=== PATIENT | male | born 1965 | race Caucasian/White ===

== ENCOUNTER → 2016-09-15 | Outpatient (CLI) | payer BC | END | disposition home or self-care (01) | LOC: C.PATH 17:28 | PROVIDERS: ATTEND Orthopaedic Surgery | DX: D18.01 Hemangioma of skin and subcutaneous tissue (principal) ==

== ENCOUNTER 2024-07-08 09:23 | Inpatient (IN) ==
--- NOTE | 2024-07-08 09:53 | Emergency Department Note ---
Impression & Plan Renal colic, Urolithiasis, Acute flank pain, GÉNESIS (acute kidney injury), Acute UTI ED Provider Note NAME: COLBY BAUM AGE: 59 SEX: M : 1965 ARRIVES VIA: Walk-In INFORMANT: Patient ED PROVIDER(S): Pramod Solorzano DO CHIEF COMPLAINT: Flank pain HPI: Patient is a 59-year-old male who presents ER for right flank pain. He notes this started on Tuesday and was severe. He had some nausea and vomiting. Yesterday he felt a pop when he bent over and since then the chest feels sore. Denies any weakness or numbness in the legs. No dysuria, urgency, or frequency. He noticed some blood in his urine yesterday. No other exacerbating or remitting factors. ADDITIONAL HISTORY OBTAINED: Per HPI Chronic Medical/Social Conditions Affecting Care: Per HPI PAST MEDICAL HISTORY:See Below PAST SURGICAL HISTORY:See Below FAMILY HISTORY:See Below SOCIAL HISTORY:See Below HOME MEDICATIONS:See Below ALLERGIES:See Below VITALS:See Below PHYSICAL EXAMINATION: GENERAL: Sitting up in bed, alert, moderate distress, holding right flank EYE EXAM: normal conjunctiva. OROPHARYNX:mucous membranes are moist NECK: supple, no nuchal rigidity, no adenopathy, non-tender LUNGS: Clear to auscultation. Normal chest wall mechanics HEART: no murmurs, S1 normal and S2 normal ABDOMEN: abdomen soft, non-tender, normo-active bowel sounds, no masses, no rebound or guarding. BACK: Back is symmetrical on inspection and there is no deformity, no midline tenderness, no CVA tenderness. SKIN: no rashes and no bruising UPPER EXTREMITIES: upper extremities are grossly normal. LOWER EXTREMITIES: No pitting edema. NEURO EXAM: Normal sensorium, cranial nerves II-XII grossly intact, normal speech, no gross weakness of arms, no gross weakness of legs. No drift. Finger to nose intact. Gross sensation intact. MEDICAL DECISION MAKING: Patient is a 59-year-old male who presents ER for the below stated complaint. IV was established and blood work was obtained. He was found to be hypertensive. Labs show leukocytosis of 19.5 thousand. No significant anemia. BMP with a creatinine of 1.9 up from baseline of 1. LFTs were unremarkable. T. bili slightly up at 1.6. Lipase normal. UA did show leukocytes and white cells. CT abdomen pelvis showed a stone within the ureter. In the setting of the leuks and white cells I did discuss the case with urology. At this time they question whether there is an infection or this is related to the stone. Patient was covered with IV antibiotics. With the GÉNESIS and the current presentation with the leukocytes, white cells and CBC showing a white count of 19.5 I did discuss case with the hospitalist for further evaluation management treatment. Consults/Care Managements Discussions: Per MDM Triage Nursing notes reviewed. Limited review of prior medical records performed Vital Signs: reviewed and remarkable for HTN and tachy Differential diagnosis: Differential diagnoses includes but is not limited to gastritis, peptic ulcer disease, GERD, gallbladder disease, pancreatitis, small bowel obstruction, appendicitis, diverticulitis, hernia, urinary tract infection, torsion, perforation, trauma, infectious. ER treatment provided: See below Diagnostics interpreted by me include EKG and cardiac monitoring as listed below: -Cardiac Monitoring: An order was placed for continuous cardiac monitoring. The monitor shows a rate of 101 with sinus rhythm. -ECG: none -Laboratory studies:Interpreted by me as stated above in MDM and shown below. Imaging studies: Xrays: As interpreted by me:none CTs show: CT abdomen pelvis per my preliminary interpretation showed no obvious bowel obstruction CT abdomen pelvis per radiology showed hydronephrosis with a stone within the ureter. Procedures:none Critical Care: None Past Med/Surg History Problem List (Updated 07/08/24 @ 15:29 by Pramod Solorzano DO) Acute UTI (Acute) GÉNESIS (acute kidney injury) (Acute) Acute flank pain (Acute) Renal colic (Acute) Urolithiasis (Acute) Encounter for pre-operative examination Medical History (Updated 07/08/24 @ 15:29 by Pramod Solorzano DO) CKD (chronic kidney disease) Acid reflux HTN (hypertension) Borderline diabetes Atrial fibrillation Taking Eliquis - Follows with Dr Horowitz/KIMBERLEE Aceves Sleep apnea CPAP Nephrolithiasis Surgical History Hx of colonoscopy Hx of wisdom tooth extraction History of lithotripsy Hx of umbilical hernia repair Family History Other No family history of adverse response to anesthesia Social History Smoking Status: Former smoker Tobacco Type: Cigarettes Second Hand Exposure: No; Do You Dip or Chew Tobacco: No; Tobacco Cessation Education Requested by Patient: No Hx Alcohol Use: Yes Hx Substance Use: No Preferred Language: Greenlandic Communication Ability: Effective Pump Servicer Required: No Beliefs That Will Affect Care: None Current Living Situation: Spouse Current Living Situation Comment: With spuse Other Information That Helps Us Care for You: No Feels Safe at Home: Yes Safety Concerns: Feels Safe At This Time Assistive Devices: None Allergies Allergies Allergy/AdvReac Type Severity Reaction Status Date / Time No Known Allergies Allergy Verified 07/08/24 11:44 Home Meds Home Medications Medication Instructions Recorded Confirmed apixaban 5 mg tablet (Eliquis) 5 mg PO BID 05/15/24 07/08/24 atorvastatin 10 mg tablet (Lipitor) 10 mg PO HS 05/15/24 07/08/24 cholecalciferol (vitamin D3) 10 10 mcg PO DAILY 05/15/24 07/08/24 mcg (400 unit) capsule diltiazem HCl 180 mg capsule,24 180 mg PO QAM 05/15/24 07/08/24 hr,extended release famotidine 20 mg tablet 20 mg PO QAM 05/15/24 07/08/24 losartan 100 mg tablet 100 mg PO QAM 05/15/24 07/08/24 metformin 500 mg tablet 500 mg PO QAM 05/15/24 07/08/24 multivitamin 1 tab PO DAILY 05/15/24 07/08/24 oxycodone-acetaminophen 5 mg-325 1 tab PO Q8H PRN Pain 05/15/24 07/08/24 mg tablet spironolactone 25 mg tablet 25 mg PO BID 05/15/24 07/08/24 tamsulosin 0.4 mg capsule 0.4 mg PO QAM PRN Bladder Spasms 05/15/24 07/08/24 semaglutide 0.25 mg or 0.5 mg (2 0.25 mg subcut WK 07/05/24 07/08/24 mg/3 mL) subcutaneous pen injector (Ozempic) Results & Data (ED) Vital Signs Vital Signs - 24 hr 07/08/24 09:30 07/08/24 09:39 07/08/24 09:55 Temperature 36.8 C Temperature Source Temporal Artery Scan Pulse Rate 106 H Pulse Rate [Right] 87 Respiratory Rate 18 16 Respiratory Effort / Characteristics Non-Labored Spontaneous Respiratory Depth Normal Blood Pressure 172/84 H Blood Pressure [Right Arm] 156/77 H Blood Pressure Mean 113 Blood Pressure Mean [Right Arm] 103 Blood Pressure Position Sitting Pulse Oximetry 95 94 93 Oxygen Delivery Method Room Air Room Air Sepsis Recent Fever Within 48 Hours No Sepsis New/Unexplained Change in Mental Status No Sepsis Action Taken by Nursing No Action Required 07/08/24 11:23 Temperature Temperature Source Pulse Rate Pulse Rate [Right] 86 Respiratory Rate 18 Respiratory Effort / Characteristics Respiratory Depth Blood Pressure Blood Pressure [Right Arm] 120/63 Blood Pressure Mean Blood Pressure Mean [Right Arm] 82 Blood Pressure Position Pulse Oximetry 93 Oxygen Delivery Method Sepsis Recent Fever Within 48 Hours Sepsis New/Unexplained Change in Mental Status Sepsis Action Taken by Nursing Laboratory Data 07/08/24 09:45 07/08/24 09:45 Lab Results 07/08/24 Range/Units 09:45 WBC 19.52 H (4.8-10.8) K/ul RBC 4.34 L (4.70-6.10) M/uL Hgb 13.3 L (14.0-18.0) g/dl Hct 39.7 L (42.0-52.0) % MCV 91.5 (80.0-100.0) fL MCH 30.6 (25.0-34.0) pg MCHC 33.5 (32.0-36.0) g/dL RDW Std Deviation 43.4 (36.4-46.3) fL RDW Coeff of Tahir 13.0 (11.5-14.5) % Plt Count 204 (130-400) K/uL MPV 10.9 (9.4-12.4) fL Immature Gran % (Auto) 0.7 % Neut % (Auto) 91.3 % Lymph % (Auto) 2.8 % [place] % (Auto) 5.0 % Eos % (Auto) 0.0 % Baso % (Auto) 0.2 % Neut # (Auto) 17.83 H (1.40-6.50) K/uL Lymph # (Auto) 0.55 L (1.20-3.40) K/uL [place] # (Auto) 0.97 H (0.11-0.59) K/uL Eos # (Auto) 0.00 (0.00-0.50) K/uL Baso # (Auto) 0.03 (0.00-0.20) K/uL Immature Gran # (Auto) 0.14 (0.01-0.20) K/uL Sodium 136 (136-145) mmol/L Potassium 4.2 (3.5-5.1) mmol/L Chloride 102 (98-107) mmol/L Carbon Dioxide 23 (21-32) mmol/L Anion Gap 11 (3-11) BUN 26 H (6-23) mg/dl Creatinine 1.92 H (0.6-1.4) mg/dl Est Cr Clr Drug Dosing 63.2 ml/min eGFR 40.13 BUN/Creatinine Ratio 13.5 (10-20) Glucose 183 H (70-99(Fasting)) mg/dl Calcium 10.0 (8.6-10.3) mg/dl Total Bilirubin 1.6 H (0.2-1.0) mg/dl AST 17 (13-39) U/L ALT 24 (7-52) U/L Alkaline Phosphatase 57 (34-104) U/L Total Protein 7.8 (6.0-8.3) gm/dl Albumin 4.3 (3.4-5.0) gm/dl Globulin 3.5 (2.5-4.0) gm/dl Albumin/Globulin Ratio 1.2 (0.9-2) Lipase 9 L (11-82) U/L Urine Color Yellow Urine Appearance Clear (Clear) Urine pH 5.5 (4.5-7.5) Ur Specific [place] 1.024 (1.000-1.030) Urine Protein Trace H (Negative) Urine Glucose (UA) Negative (Negative) Urine Ketones Trace H (Negative) Urine Blood Negative (Negative) Urine Nitrite Negative (Negative) Urine Bilirubin Negative (Negative) Urine Urobilinogen Negative (Negative) Ur Leukocyte Esterase 2+ H (Negative) Urine WBC (Auto) >50 H (0-5) /hpf Urine RBC (Auto) 0-2 (0-2) /hpf U Hyaline Cast (Auto) 0-2 (0-2) /lpf U Epithel Cells (Auto) 0-2 (0-2) /hpf Urine Bacteria (Auto) None Seen (None Seen) Administered Medications Famotidine (Famotidine 20 Mg Tab) 20 mg PO QAM [facility] Stop: 08/07/24 12:25 Last Admin: 07/08/24 14:48 Dose: Not Given Documented By: CRYSTAL Sodium Chloride (Nss) 1,000 mls @ 100 mls/hr IV .Q10H [facility] Stop: 07/09/24 07:29 Last Admin: 07/08/24 11:46 Dose: 100 mls/hr Documented By: REG Insulin Aspart (Insulin Aspart Per Unit Charge) 0 units SC ACHS [facility] Stop: 08/07/24 12:25 Last Admin: 07/08/24 14:48 Dose: Not Given Documented By: CRYSTAL Co-signed By: LOAN Discontinued Medications Apixaban (Apixaban 5 Mg Tablet) 5 mg PO ONE ONE Stop: 07/08/24 11:31 Last Admin: 07/08/24 11:47 Dose: 5 mg Documented By: REG Sodium Chloride (Nss) 1,000 mls @ 999 mls/hr IV .Q1H1M ONE Stop: 07/08/24 10:50 Last Infusion: 07/08/24 11:20 Dose: Infused Documented By: Admin: 07/08/24 10:05 Dose: 999 mls/hr Documented By: REG Ceftriaxone Sodium (Rocephin) 2,000 mg in 50 mls @ 100 mls/hr IV NOW STA Stop: 07/08/24 11:23 Last Infusion: 07/08/24 11:56 Dose: Infused Documented By: Admin: 07/08/24 11:18 Dose: 100 mls/hr Documented By: REG Daptomycin 425 mg/ Syringe 8.5 mls @ 4.25 mls/min IV NOW STA; Protocol Stop: 07/08/24 11:20 Last Admin: 07/08/24 11:47 Dose: 4.25 mls/min Documented By: REG Ketorolac Tromethamine (Ketorolac Tromethamine 15 Mg/Ml Vial) 10 mg IV NOW ONE Stop: 07/08/24 09:51 Last Admin: 07/08/24 10:06 Dose: 10 mg Documented By: REG Tamsulosin HCl (Tamsulosin Hcl 0.4 Mg Cap) 0.4 mg PO NOW ONE Stop: 07/08/24 11:31 Last Admin: 07/08/24 11:47 Dose: 0.4 mg Documented By: REG Imaging Data Radiologist's Impression: Abdomen/Pelvis CT 07/08/24 09:50 EXAM: CT Abdomen and Pelvis Without Intravenous Contrast INDICATION: Right flank pain. TECHNIQUE: Axial computed tomography images of the abdomen and pelvis without intravenous contrast. Sagittal and coronal reformatted images were created and reviewed. This CT exam was performed using one or more of the following dose reduction techniques: automated exposure control, adjustment of the mA and/or kV according to patient size, and/or use of iterative reconstruction technique. COMPARISON: 05/08/2024 FINDINGS: Limitations: None. Lung bases: No abnormality noted. Pleural space: No visualized pleural effusion or pneumothorax. Heart: No abnormality noted. Mediastinum: No abnormality noted. ABDOMEN: Liver: Normal size and contour. Hypodense typical of steatosis. No mass or ductal dilation. Gallbladder and bile ducts: No calcified stones or surrounding fluid. Pancreas: No pancreatic mass, calcification, inflammation or ductal dilation noted. Spleen: No significant abnormality noted. Adrenals: No significant abnormality noted. Kidneys and ureters: There is mild right hydroureteronephrosis to a 4 x 6 mm ureteral stone at the level of L4-L5. Slight increase size of the stone in the right renal pelvis. The renal pelvis is mildly inflamed. There are is a stable 7 mm stone in the right kidney now in the posterior lower pole. There is an 8 mm stone in the left kidney. This could reflect the previously noted UPJ stone which was pushed back into the kidney or it is a new stone with interval passage of the prior stone. There is mild right perinephric acute edema. There is decreased left perinephric edema. Stomach and bowel: Moderate amounts of stool throughout the colon with diffuse diverticulosis. No diverticulitis. No obstruction, thickening or pneumatosis. PELVIS: Appendix: Well seen and appears normal. Bladder: Urinary bladder is only minimally distended and grossly unremarkable. Mild thickening would be difficult to exclude. Reproductive: No abnormalities noted. ABDOMEN and PELVIS: Intraperitoneal space: No free air. No significant fluid collection. Bones/joints: Degenerative changes noted throughout the spine. No acute osseous abnormality seen. Soft tissues: There are small bilateral fat containing inguinal hernias. Vasculature: No abdominal aortic aneurysm. Lymph nodes: No pathologically enlarged lymph nodes. IMPRESSION: 1. Mild right hydroureteronephrosis to a 4 x 6 mm ureteral stone at the level of L4-L5. 2. The stone previously noted at the left UPJ is no longer in this location. There is a similar sized stone in the left kidney which could reflect interval migration or manipulation of the stone back into the kidney or could reflect a new stone. 3. Slight increase size of stone in the right renal pelvis which is inflamed. Nonobstructing right kidney stone stable. 4. Diffuse colonic diverticulosis. No diverticulitis noted. 5. Hepatic steatosis. ACT 112: Negative or not required by law. Electronically signed by Bhumika Ramirez 07-08-2024 10:40 AM Discharge Plan Visit Data Chief Complaint: Kidney Stone Stated Complaint: KIDNEY STONE MOVED/PAINFUL ED Provider: Pramod Solorzano Discharge Problem: Renal colic, Urolithiasis, Acute flank pain, GÉNESIS (acute kidney injury), Acute UTI Patient Disposition: Admitted As Inpatient Discharge Instructions Interventions: ED Discharge Assessment Last Done: 07/08/24 12:25 Discharge Problem: Urolithiasis Qualifiers: Urinary calculus location: ureter Qualified Code(s): N20.1 - Calculus of ureter
[2024-07-08] MEDS: SODIUM CHLORIDE 0.9% 1,000 ML IV ONE (10:05)
[2024-07-08] MEDS: KETOROLAC TROMETHAMINE 15 MG/ML VIAL IV ONE (10:06)
[2024-07-08 10:12] LABS: Hematocrit (blood only) 39.7 % (42.0-52.0); Hemoglobin 13.3 g/dl (14.0-18.0); Mean Corpuscular Hemoglobin 30.6 pg (25.0-34.0); Mean Corpuscular Hgb Conc 33.5 g/dL (32.0-36.0); Mean Corpuscular Volume 91.5 fL (80.0-100.0); Mean Platelet Volume 10.9 fL (9.4-12.4); Platelet Count 204 K/uL (130-400); RDW Standard Deviation 43.4 fL (36.4-46.3); Red Blood Count 4.34 M/uL (4.70-6.10); White Blood Count 19.52 K/ul (4.8-10.8)
[2024-07-08 10:13] LABS: Appearance Urine Clear (Clear); Bacteria Urine Automated None Seen (None Seen); Bilirubin Urine Negative (Negative); Blood Urine Negative (Negative); Cast Urine Automated 0-2 /lpf (0-2); Color Urine Yellow; Epithelial Cell Urine Auto 0-2 /hpf (0-2); Glucose Urine UA Negative (Negative); Ketones Urine Trace (Negative); Leukocyte Esterase Urine 2+ (Negative); Nitrite Urine Negative (Negative); Protein Urine Trace (Negative); RBC Urine Automated 0-2 /hpf (0-2); Specific Gravity Urine 1.024 (1.000-1.030); Urobilinogen Urine Negative (Negative); WBC Urine Automated >50 /hpf (0-5); pH Urine 5.5 (4.5-7.5)
[2024-07-08 10:30] LABS: Albumin Globulin Ratio 1.2 (0.9-2); Albumin Level 4.3 gm/dl (3.4-5.0); BUN Creatinine Ratio 13.5 (10-20); Basophils # (auto) 0.03 K/uL (0.00-0.20); Basophils % (auto) 0.2 %; Bilirubin,Total 1.6 mg/dl (0.2-1.0); Creatinine Clr Calc Pharmacy 63.2 ml/min; Globulin 3.5 gm/dl (2.5-4.0); Immature Granulocytes # (auto) 0.14 K/uL (0.01-0.20); Immature Granulocytes % (auto) 0.7 %; Lymphocytes # (auto) 0.55 K/uL (1.20-3.40); Lymphocytes % (auto) 2.8 %; Monocytes # (auto) 0.97 K/uL (0.11-0.59); Neutrophils # (auto) 17.83 K/uL (1.40-6.50); Neutrophils % (auto) 91.3 %; Potassium 4.2 mmol/L (3.5-5.1); Total Protein 7.8 gm/dl (6.0-8.3)
--- NOTE | 2024-07-08 10:41 | CT Scan Report ---
EXAM: CT Abdomen and Pelvis Without Intravenous Contrast INDICATION: Right flank pain. TECHNIQUE: Axial computed tomography images of the abdomen and pelvis without intravenous contrast. Sagittal and coronal reformatted images were created and reviewed. This CT exam was performed using one or more of the following dose reduction techniques: automated exposure control, adjustment of the mA and/or kV according to patient size, and/or use of iterative reconstruction technique. COMPARISON: 05/08/2024 FINDINGS: Limitations: None. Lung bases: No abnormality noted. Pleural space: No visualized pleural effusion or pneumothorax. Heart: No abnormality noted. Mediastinum: No abnormality noted. ABDOMEN: Liver: Normal size and contour. Hypodense typical of steatosis. No mass or ductal dilation. Gallbladder and bile ducts: No calcified stones or surrounding fluid. Pancreas: No pancreatic mass, calcification, inflammation or ductal dilation noted. Spleen: No significant abnormality noted. Adrenals: No significant abnormality noted. Kidneys and ureters: There is mild right hydroureteronephrosis to a 4 x 6 mm ureteral stone at the level of L4-L5. Slight increase size of the stone in the right renal pelvis. The renal pelvis is mildly inflamed. There are is a stable 7 mm stone in the right kidney now in the posterior lower pole. There is an 8 mm stone in the left kidney. This could reflect the previously noted UPJ stone which was pushed back into the kidney or it is a new stone with interval passage of the prior stone. There is mild right perinephric acute edema. There is decreased left perinephric edema. Stomach and bowel: Moderate amounts of stool throughout the colon with diffuse diverticulosis. No diverticulitis. No obstruction, thickening or pneumatosis. PELVIS: Appendix: Well seen and appears normal. Bladder: Urinary bladder is only minimally distended and grossly unremarkable. Mild thickening would be difficult to exclude. Reproductive: No abnormalities noted. ABDOMEN and PELVIS: Intraperitoneal space: No free air. No significant fluid collection. Bones/joints: Degenerative changes noted throughout the spine. No acute osseous abnormality seen. Soft tissues: There are small bilateral fat containing inguinal hernias. Vasculature: No abdominal aortic aneurysm. Lymph nodes: No pathologically enlarged lymph nodes. IMPRESSION: 1. Mild right hydroureteronephrosis to a 4 x 6 mm ureteral stone at the level of L4-L5. 2. The stone previously noted at the left UPJ is no longer in this location. There is a similar sized stone in the left kidney which could reflect interval migration or manipulation of the stone back into the kidney or could reflect a new stone. 3. Slight increase size of stone in the right renal pelvis which is inflamed. Nonobstructing right kidney stone stable. 4. Diffuse colonic diverticulosis. No diverticulitis noted. 5. Hepatic steatosis. ACT 112: Negative or not required by law. Electronically signed by Bhumika Ramirez 07-08-2024 10:40 AM
[2024-07-08] MEDS: cefTRIAXone SODIUM 2,000 MG/50 ML BAG IV STA (11:18)
--- NOTE | 2024-07-08 11:37 | History & Physical Report ---
Date of Service July 08, 2024 Assessment & Plan (1) Urolithiasis: Plan: Assessment: 1. Right-sided urolithiasis at the level of the L4-L5 stone sizes 4 x 6 cm with associated mild right-sided hydronephrosis with renal pelvis inflammation by CAT scan. IV fluids, p.o. Flomax, strain all urine, consult urology Dr. Lam's been notified, n.p.o. after midnight if stone does not pass consider surgical intervention. 2. Suspected urinary tract infection and possibly infected stone given the very significant leukocytosis as well as the urinalysis parameters. Again review of urine cultures from just last month reveals methicillin resistant Staph epidermidis. Consultation with clinical pharmacy determinations were made to continue the IV Rocephin at 2 g daily in conjunction with the addition of daptomycin to cover the Staph epidermidis species that he grew last month in his urine. Antibiotics can be tailored once culture data is available from this admission. 3. Acute kidney injury multifactorial secondary to obstructive process as well as hypovolemia. Hydrate aggressively and monitor renal function. 4. Paroxysmal atrial fibrillation on chronic apixaban therapy. Continue. We did discuss with urology. 5. Obstructive sleep apnea patient has home CPAP here which has been ordered. 6. Hepatic steatosis by CAT scan. Patient is aware this has been told this by his primary care provider. This to be followed per standard of care 7. Morbid obesity. 8. Diabetes mellitus type 2 [id number]. He did did take his Ozempic this past Tuesday. He is on metformin and this will be held given his acute kidney injury excetra. Insulin sliding scale/bolus basal insulin regimen ordered. 9. Hypertension. Continue same home medications. 10. GERD continue home H2 sammy. 11. Dyslipidemia continue home statin therapy. 12. Mild chronic anemia. This should be monitored and worked up as an outpatient. 13. Diverticulosis by CAT scan. Patient is also aware of this diagnosis. He gets colonoscopies every 3 years due to colonic polyps and has been told he has diverticulosis in the past. Last colonoscopy was approximately 24 months ago he is due in approximately 1 year. Plan: As discussed above. Please refer to orders for further planning. History of Present Illness Chief Complaint: Right flank pain, history of kidney stones. Primary Care Provider: DAVID Hein This is a pleasant 59-year-old male with a history of nephrolithiasis urolithiasis excetra, he started develop right-sided flank pain yesterday with nausea and vomiting. It waxed and waned through the day. This morning it was severe. Eventually presented to the ER for further evaluation and treatment. In emergency department CAT scan demonstrated some right-sided hydronephrosis with a 4 x 6 urethral stone at the level of L4-L5. Did also show inflammation of the renal pelvis. Along with hepatic steatosis and diverticulosis from a chronic standpoint with no evidence of acute diverticulitis. Laboratory studies showed a white count of approximately 20,000. With acute kidney injury with a creatinine 1.9 with a baseline of approximately 1. Urinalysis was positive for white cells and leukocyte esterase. Course Emergency Department received 2 g of IV Rocephin. Consultation obtained with urology on-call Dr. Lam. We are called with the patient further evaluation and treatment. I reviewed the patient's urine culture data from June 2023 grew multidrug-resistant Staph epidermidis methicillin-resistant. Conversation with clinical pharmacy given the patient's body habitus, we are going to use daptomycin in combination with Rocephin until culture data is resulted from today's urinalysis. Will hydrate the patient aggressively. Strain all urine. Consult urology. Tentative plan is for no surgery today n.p.o. after midnight for possible cystoscopy excetra tomorrow pending clinical course Allergies Allergy/AdvReac Type Severity Reaction Status Date / Time No Known Allergies Allergy Verified 07/05/24 15:39 Home Medications Medication Instructions Recorded Confirmed Type apixaban 5 mg tablet (Eliquis) 5 mg PO BID 05/15/24 07/05/24 History atorvastatin 10 mg tablet (Lipitor) 10 mg PO HS 05/15/24 07/05/24 History cholecalciferol (vitamin D3) 10 10 mcg PO DAILY 05/15/24 07/05/24 History mcg (400 unit) capsule diltiazem HCl 180 mg capsule,24 180 mg PO QAM 05/15/24 07/05/24 History hr,extended release docusate sodium 100 mg capsule 100 mg PO DAILY PRN constipation 05/15/24 07/05/24 History famotidine 20 mg tablet 20 mg PO QAM 05/15/24 07/05/24 History losartan 100 mg tablet 100 mg PO QAM 05/15/24 07/05/24 History metformin 500 mg tablet 500 mg PO QAM 05/15/24 07/05/24 History multivitamin 1 tab PO DAILY 05/15/24 07/05/24 History oxycodone-acetaminophen 5 mg-325 1 tab PO Q8H PRN Pain 05/15/24 07/05/24 History mg tablet spironolactone 25 mg tablet 25 mg PO BID 05/15/24 07/05/24 History tamsulosin 0.4 mg capsule 0.4 mg PO QAM 05/15/24 07/05/24 History tramadol 50 mg tablet 50 mg PO Q6H PRN pain #20 tabs 05/22/24 07/05/24 Rx semaglutide 0.25 mg or 0.5 mg (2 0.25 mg subcut WK 07/05/24 07/05/24 History mg/3 mL) subcutaneous pen injector (Ozempic) Past Med/Surg History Problem List (Updated 07/08/24 @ 11:31 by Dale Lee, PhD, DO) Urolithiasis Encounter for pre-operative examination Medical History (Updated 07/08/24 @ 11:31 by Dale Lee, PhD, DO) CKD (chronic kidney disease) Acid reflux HTN (hypertension) Borderline diabetes Atrial fibrillation Taking Eliquis - Follows with Dr Horowitz/[facility] Sleep apnea CPAP Nephrolithiasis Surgical History Hx of colonoscopy Hx of wisdom tooth extraction History of lithotripsy Hx of umbilical hernia repair Family History Other No family history of adverse response to anesthesia Social History Smoking Status: Never smoker Tobacco Type: Cigarettes Second Hand Exposure: No; Do You Dip or Chew Tobacco: No; Hx Alcohol Use: No Hx Substance Use: No Preferred Language: Mexican Communication Ability: Effective Eyelet Punch Operator Required: No Beliefs That Will Affect Care: None Current Living Situation: Spouse Feels Safe at Home: Yes Assistive Devices: CPAP and Glasses Review of Systems Review of Systems: A 10 point review of system was obtained and unless otherwise stated here or in history of present illness are negative and noncontributory to chief complaint. Physical Exam Physical Exam: In General: In general very pleasant 59-year-old male he is [place] by his , carlos. He is comfortable at this point he did receive some Toradol in the ER. He has no other complaints. He works locally at a grocery store. HEENT: Normocephalic atraumatic pupils are equal round and reactive to light bilaterally. No scleral icterus no conjunctival injection external auditory canals are patent septum is in the midline nose is without discharge oral mucosa is pink and moist without lesion. NECK: Supple no rigidity no lymphadenopathy no thyromegaly no carotid bruits no JVD no masses. HEART: Regular rate and rhythm I do not appreciate any ectopy or rub. No murmur. LUNGS: Clear to auscultation bilaterally and anteriorly with no evidence of adventitious sounds/wheezes rales or rhonchi. ABDOMEN: Soft nontender, no rebound, no peritoneal signs, positive bowel sounds, no appreciable organomegaly. EXTREMITIES: Intact, no peripheral cyanosis, clubbing or edema. Strength is 5 out of 5 in extremities x4. NEUROLOGICAL: Cranial nerves II through XII are grossly intact with no focal deficit elicited upon examination. Results & Data Results & Data Vital Signs (Past 12 Hours) Vital Signs Temp Pulse Pulse Resp BP BP Pulse Ox 07/08/24 09:55 87 16 156/77 H 93 07/08/24 09:30 36.8 C 106 H 18 172/84 H 95 O2 Del Method 07/08/24 09:55 07/08/24 09:30 Room Air Code Status & VTE Plan Code Status CODE STATUS: Full code. I personally discussed with patient at the bedside today PG Care Time/CCT Total # of Minutes Spent Total Time Spent with Patient: Total time spent is greater than 50% in coordination of care (as documented) at patient's floor/unit and/or counseling patient: Coding Level of Care Code 16378 INT INP/OBS CARE 75MIN Diagnoses Urolithiasis N20.9
[2024-07-08] MEDS: SODIUM CHLORIDE 0.9% 1,000 ML IV SCH (11:46)
[2024-07-08] MEDS: DAPTOmycin 425 MG in SYRINGE 0 ML IV STA (11:47)
[2024-07-08] MEDS: TAMSULOSIN HCL 0.4 MG CAP PO ONE (11:47)
[2024-07-08] MEDS: APIXABAN 5 MG TABLET PO ONE (11:47)
[2024-07-08] MEDS ORDERED: TAMSULOSIN HCL 0.4 MG CAP PO PRN (12:26)
[2024-07-08] MEDS ORDERED: GLUCOSE 40% GEL 15 GM TUBE PO PRN (12:26)
[2024-07-08] MEDS ORDERED: CARBOHYDRATES FOR HYPOGLYCEMIA PO PRN (12:26)
[2024-07-08] MEDS ORDERED: DEXTROSE 50% 50 ML SYRINGE IV PRN (12:26)
[2024-07-08] MEDS ORDERED: ONDANSETRON INJ 2 MG/ML 2 ML VIAL IV PRN ×2 (12:26→21:10)
[2024-07-08] MEDS ORDERED: GLUCAGON FOR INJ 1 MG VIAL SQ PRN (12:26)
[2024-07-08] MEDS ORDERED: GLUCOSE 10 TAB/TUBE PO PRN (12:26)
[2024-07-08] MEDS: FAMOTIDINE 20 MG TAB PO SCH (14:48)
[2024-07-08] MEDS: INSULIN ASPART PER UNIT CHARGE SC SCH (14:48)
[2024-07-08] MEDS: LOSARTAN POTASSIUM 50 MG TAB PO SCH (16:07)
[2024-07-08] MEDS: ACETAMINOPHEN 1,000 MG/100 ML VIAL IV STA (19:52)
[2024-07-08] MEDS: SODIUM CHLORIDE 0.9% 500 ML IV ONE (20:01)
--- NOTE | 2024-07-08 20:26 | Urology Consultation ---
Date of Consultation July 08, 2024 Assessment & Plan (1) Renal colic: Patient has been admitted on the hospitalist service. From a urologic perspective we recommend the following: Provide analgesics Provide antiemetics Follow serial labs Provide hydration with intravenous fluids Antibiotics in the form of daptomycin and Rocephin have been initiated due to concern for underlying urinary tract infection. These antibiotics should continue. An appropriate urine culture has been sent and antibiotics be tailored based on the results of these Would request the patient be made n.p.o. after midnight tonight and he will be reevaluated the morning of 07/09/2024 and a determination will be made if he will require cystoscopic intervention At the time of my interview patient was noted to be nontoxic-appearing. He was normotensive without fever tachycardia. Addendum (8:40 PM) Approximately 1 hour after my initial visit with the patient review of vitals show the patient has subsequently spiked a temperature of 39.4 and he is currently tachycardic with heart rate in the 120-130 range. He has remained normotensive. Patient is currently receiving intravenous fluids at a rate of 125 cc/h. As previously noted he is receiving antibiotics in the form of daptomycin and Rocephin. I returned to bedside to reevaluate the patient and discussed with the nurse attending to the patient. The nurse verified that the patient did spike a temperature as noted she also verify that he has been tachycardia as noted. Once the patient spiked this temperature she did notify the on-call hospitalist who ordered a 500 cc fluid bolus as well as ordered some intravenous Tylenol administered. On physical exam the patient is mentating well but he does feel warm to touch consistent with his noted fever. As noted he is normotensive. The patient does report that he ate some potatoes at approximate 5:00 PM Due to the change in patient's clinical status I discussed with my attending physician, Dr. Lam of the urologyin light of the patient's clinical change he feels will be best to proceed with cystoscopy and possible ureteral stent placement this evening. I discussed this plan with the patient and the nurse attending to the patient. The ER has been notified and we will proceed w ith this procedure as soon as the OR is prepared. Supervising Physician Co-Signing Physician Notes Agree with above consult, initial plan was for observation overnight, however this evening he developed a significant temperature and severe tachycardia He had a sudden onset of more severe right flank pain and lower abdominal pressure We have elected to perform the procedure emergently given the change in his conditionwe will move forward now with cystoscopy and right ureteral stent placement History of Present Illness Reason for Consultation: Nephrolithiasis Attending Physician: Dale Lee, PhD, DO History of Present Illness This is a 59-year-old male who presented to the emergency department secondary to right flank pain. Patient says that he has known right-sided kidney stones and is scheduled for procedural intervention by Dr. Lam on 07/17/2023. Patient presented to the emergency department due to severe right flank pain that began approximate 24 hours ago which was located as noted in the right flank with radiation to the front of his abdomen. He has had some nausea and vomiting. He has felt feverish but admits he did not take his temperature but did have occasional chills. He denies any dysuria, urinary frequency, or hematuria. Patient reports he has not passed any stones since his pain began. Since arrival hospital patient has had labs and imaging which I independent reviewed. A CT scan of the abdomen pelvis showed the patient had mild right hydronephrosis secondary to 4 x 6 mm kidney stone. There is slight increased size of a kidney stone in the right renal pelvis which appeared inflamed. Labs including CBC were white blood cell count was elevated 19.5. Hemoglobin and hematocrit are 13.3 and 39.7. Platelet count was 204,000. Chemistry profile showed sodium and potassium are normal. His BUN and creatinine were 26 and 1.9. Urinalysis showed pyuria with greater than 50 white blood cells per high-power field. Leukocyte esterase was 2+ on the study. Nitrites were negative and there is no bacteria on the study. At the time of my interview the patient was resting comfortably in bed and he was in no distress. Allergies Allergy/AdvReac Type Severity Reaction Status Date / Time No Known Allergies Allergy Verified 07/08/24 11:44 Home Medications Medication Instructions Recorded Confirmed Type apixaban 5 mg tablet (Eliquis) 5 mg PO BID 05/15/24 07/08/24 History atorvastatin 10 mg tablet (Lipitor) 10 mg PO HS 05/15/24 07/08/24 History cholecalciferol (vitamin D3) 10 10 mcg PO DAILY 05/15/24 07/08/24 History mcg (400 unit) capsule diltiazem HCl 180 mg capsule,24 180 mg PO QAM 05/15/24 07/08/24 History hr,extended release famotidine 20 mg tablet 20 mg PO QAM 05/15/24 07/08/24 History losartan 100 mg tablet 100 mg PO QAM 05/15/24 07/08/24 History metformin 500 mg tablet 500 mg PO QAM 05/15/24 07/08/24 History multivitamin 1 tab PO DAILY 05/15/24 07/08/24 History oxycodone-acetaminophen 5 mg-325 1 tab PO Q8H PRN Pain 05/15/24 07/08/24 History mg tablet spironolactone 25 mg tablet 25 mg PO BID 05/15/24 07/08/24 History tamsulosin 0.4 mg capsule 0.4 mg PO QAM PRN Bladder Spasms 05/15/24 07/08/24 History semaglutide 0.25 mg or 0.5 mg (2 0.25 mg subcut WK 07/05/24 07/08/24 History mg/3 mL) subcutaneous pen injector (Ozempic) Patient History Medical History CKD (chronic kidney disease) Acid reflux HTN (hypertension) Borderline diabetes Atrial fibrillation Taking Eliquis - Follows with Dr Horowitz/[facility] Sleep apnea CPAP Nephrolithiasis Surgical History Hx of colonoscopy Hx of wisdom tooth extraction History of lithotripsy Hx of umbilical hernia repair Family History Other No family history of adverse response to anesthesia Social History Smoking Status: Former smoker Tobacco Type: Cigarettes Second Hand Exposure: No; Do You Dip or Chew Tobacco: No; Tobacco Cessation Education Requested by Patient: No Hx Alcohol Use: Yes Hx Substance Use: No Preferred Language: Lithuanian Communication Ability: Effective Daycare Assistant Required: No Beliefs That Will Affect Care: None Current Living Situation: Spouse Current Living Situation Comment: With spuse Other Information That Helps Us Care for You: No Feels Safe at Home: Yes Safety Concerns: Feels Safe At This Time Assistive Devices: None Review of Systems Review of Systems: All systems reviewed & are unremarkable except as noted in HPI & below Physical Exam Constitutional: WD/WN, vitals as above Eyes: no conjunctival abnormality ENMT: Ears: no hearing impairment and no external ear abnormality Mouth: no oropharynx abnormality Neck: trachea midline Respiratory: normal respiratory effort; no respiratory distress and no labored breathing Cardiovascular: Rate/Rhythm: regular rate and regular rhythm Gastrointestinal (Abdomen): Abdomen is soft and nondistended. There is no pain with palpation at the time of my exam Musculoskeletal: No calf tenderness Skin: no rashes Neurologic: moves all extremities Psychiatric: A+Ox3, euthymic affect Genitourinary: No CVA tenderness with percussion on the left. He did have CVA tenderness with percussion on the right Results & Data Vital Signs (Past 12 Hours) Vital Signs Temp Pulse Pulse Pulse Resp BP BP 07/08/24 19:38 39.4 C H 130 H 20 114/61 07/08/24 15:31 157/82 H 07/08/24 13:38 07/08/24 13:33 36.7 C 95 H 18 168/77 H 07/08/24 11:23 86 18 07/08/24 09:55 87 16 07/08/24 09:39 07/08/24 09:30 36.8 C 106 H 18 172/84 H BP Pulse Ox O2 Del Method 07/08/24 19:38 90 Room Air 07/08/24 15:31 07/08/24 13:38 Room Air 07/08/24 13:33 97 Room Air 07/08/24 11:23 120/63 93 07/08/24 09:55 156/77 H 93 07/08/24 09:39 94 Room Air 07/08/24 09:30 95 Room Air PG Care Time/CCT Total # of Minutes Spent Total Time Spent with Patient: Total time spent is greater than 50% in coordination of care (as documented) at patient's floor/unit and/or counseling patient: Coding Level of Care Code 65076 IN/OBS CONSULT LVL 5,80M Diagnoses Renal colic N23
[2024-07-08] MEDS ORDERED: SUCCINYLCHOLINE CHLORIDE 20 MG/ML 10 ML VIAL IV ONE (21:00)
[2024-07-08] MEDS ORDERED: fentaNYL citrate PF 100 MCG/2 ML VIAL ONE (21:00)
[2024-07-08] MEDS ORDERED: ONDANSETRON INJ 2 MG/ML 2 ML VIAL ONE (21:00)
[2024-07-08] MEDS ORDERED: PROPOFOL IV EMULSION 10 MG/ML 20 ML VIAL IV ONE (21:00)
[2024-07-08] MEDS ORDERED: fentaNYL citrate PF 100 MCG/2 ML VIAL IV PRN (21:10)
[2024-07-08] MEDS ORDERED: ATROPINE SULFATE 0.1 MG/ML 10ML SYR IV PRN (21:10)
[2024-07-08] MEDS ORDERED: ePHEDrine sulfate 50 MG/ML AMP IV PRN (21:10)
--- NOTE | 2024-07-08 21:10 | Anesthesiology Consultation ---
Date of Service July 08, 2024 Assessment & Plan (1) Encounter for pre-operative examination: Chart Review Chart Review: Patient NOT seen in Pre Admission Testing emergent procedure Consults Requested none History Surgery Operation Date: 07/08/24 21:30 Proposed Procedures p Ureteral Stent Insertion/Removal - Rubens Lam MD Height/Weight Height: 5 ft 10 in Weight: 151 kg Allergies Allergy/AdvReac Type Severity Reaction Status Date / Time No Known Allergies Allergy Verified 07/08/24 11:44 Medications Home Medications Medication Instructions Recorded Confirmed Last Taken apixaban 5 mg tablet (Eliquis) 5 mg PO BID 05/15/24 07/08/24 05/22/24 07:00 atorvastatin 10 mg tablet (Lipitor) 10 mg PO HS 05/15/24 07/08/24 05/20/24 20:00 cholecalciferol (vitamin D3) 10 10 mcg PO DAILY 05/15/24 07/08/24 05/21/24 07:00 mcg (400 unit) capsule diltiazem HCl 180 mg capsule,24 180 mg PO QAM 05/15/24 07/08/24 07/08/24 hr,extended release famotidine 20 mg tablet 20 mg PO QAM 05/15/24 07/08/24 05/22/24 07:00 losartan 100 mg tablet 100 mg PO QAM 05/15/24 07/08/24 05/21/24 07:00 metformin 500 mg tablet 500 mg PO QAM 05/15/24 07/08/24 05/21/24 07:00 multivitamin 1 tab PO DAILY 05/15/24 07/08/24 05/21/24 07:00 oxycodone-acetaminophen 5 mg-325 1 tab PO Q8H PRN Pain 05/15/24 07/08/24 05/20/24 07:00 mg tablet spironolactone 25 mg tablet 25 mg PO BID 05/15/24 07/08/24 05/21/24 07:00 tamsulosin 0.4 mg capsule 0.4 mg PO QAM PRN Bladder Spasms 05/15/24 07/08/24 05/22/24 07:00 semaglutide 0.25 mg or 0.5 mg (2 0.25 mg subcut WK 01/30/25 02/02/25 01/27/25 mg/3 mL) subcutaneous pen injector (Ozempic) Active Medications Generic Name Dose Route Start Last Admin Trade Name Johnq PRN Reason Stop Dose Admin Famotidine 20 mg 07/08/24 12:26 07/08/24 14:48 Famotidine 20 Mg Tab PO 08/07/24 12:25 Not Given QAM KEITH Sodium Chloride 1,000 mls @ 125 mls/hr 07/08/24 11:30 07/08/24 11:46 Nss IV 07/09/24 05:08 100 mls/hr .Q8H KEITH Administration Insulin Aspart 0 units 07/08/24 12:26 07/08/24 17:56 Insulin Aspart Per Unit Charge SC 08/07/24 12:25 4 units ACHS KEITH Administration Losartan Potassium 100 mg 07/09/24 09:00 07/08/24 16:07 Losartan Potassium 50 Mg Tab PO 08/08/24 08:59 100 mg QAM KEITH Administration Past Medical History Medical History CKD (chronic kidney disease) Acid reflux HTN (hypertension) Borderline diabetes Atrial fibrillation Taking Eliquis - Follows with Dr Horowitz/[facility] Sleep apnea CPAP Nephrolithiasis Past Family History Family History Other No family history of adverse response to anesthesia Past Surgical History Surgical History Hx of colonoscopy Hx of wisdom tooth extraction History of lithotripsy Hx of umbilical hernia repair Social History Smoking Status: Former smoker Do You Dip or Chew Tobacco: No Hx Alcohol Use: Yes alcohol intake frequency: 0-2 drinks per day Hx Substance Use: No substance use type: does not use Physical Exam Vital Signs Last Vital Signs Temp 99.3 F 07/08/24 21:07 Pulse 111 H 07/08/24 21:07 Resp 22 07/08/24 21:07 BP 122/67 07/08/24 21:07 Pulse Ox 93 07/08/24 21:07 O2 Del Method Room Air 07/08/24 21:07 Testing Laboratory Results 07/08/24 09:45 07/08/24 09:45 Urine Color Yellow 07/08/24 09:45 Urine Appearance Clear (Clear) 07/08/24 09:45 Urine pH 5.5 (4.5-7.5) 07/08/24 09:45 Ur Specific [place] 1.024 (1.000-1.030) 07/08/24 09:45 Urine Protein Trace (Negative) H 07/08/24 09:45 Urine Glucose (UA) Negative (Negative) 07/08/24 09:45 Urine Ketones Trace (Negative) H 07/08/24 09:45 Urine Nitrite Negative (Negative) 07/08/24 09:45 Ur Leukocyte Esterase 2+ (Negative) H 07/08/24 09:45 Urine WBC (Auto) >50 /hpf (0-5) H 07/08/24 09:45 Urine RBC (Auto) 0-2 /hpf (0-2) 07/08/24 09:45 U Hyaline Cast (Auto) 0-2 /lpf (0-2) 07/08/24 09:45 U Epithel Cells (Auto) 0-2 /hpf (0-2) 07/08/24 09:45 Urine Bacteria (Auto) None Seen (None Seen) 07/08/24 09:45 07/08/24 07/08/24 20:40 16:48 POC Glucose 140 H 137 H
[2024-07-08] MEDS ORDERED: SUGAMMADEX SODIUM 200 MG/2 ML VIAL IV ONE (21:50)
[2024-07-08] MEDS: APIXABAN 5 MG TABLET PO SCH (21:52)
--- NOTE | 2024-07-08 22:13 | Operative Report ---
PG Post Operative Report Pre & Post Diagnosis Operation Date: 07/08/24 21:30 Pre: right ureteral stone Post: right ureteral stone I identified the patient and participated in the time-out.: Yes Procedure Operation Date: 07/08/24 21:30 Procedure: cystoscopy, right ureteral stent placement Surgeon Rubens Lam MD Sensor Specialist none Estimated Blood Loss 0 Findings Consistent with Post-Op Diagnosis Specimens none Description of Procedure The patient was identified in the preoperative holding area, appropriate informed consents were reviewed and completed and the patient was transferred to the operative suite. Upon arrival, appropriate antibiotics and anesthesia were administered and the patient was placed in dorsal lithotomy position and prepped and draped in sterile fashion. Begin the case to pass 21 [place] cystoscope with 30 degree lens. Inspection revealed a healthy-appearing urethra and prostate. Bladder was unremarkable with ureteral orifices in orthotopic position. I turned my attention to the right UO and cannulated with a sensor wire which advanced the kidney without difficulty. I then proceeded to place a 6 [place] by 26 cm double-J stent. There was good curl in the kidney as well as the bladder and there was drainage of murky urine through and around the stent. At that time I decompressed the bladder and concluded the case. He was reversed of anesthesia and taken to the recovery room in stable condition. There were no complications. I attest to the content of the Intraoperative Record and any orders documented therein. Any exceptions are noted below.
--- NOTE | 2024-07-08 22:19 | Anesthesiology Progress Note ---
Date of Service July 08, 2024 Anesthesia Post Procedure Vital Signs Vital Signs: Temp Pulse Pulse Pulse Resp BP BP 07/08/24 21:07 99.3 F 111 H 22 122/67 07/08/24 19:38 102.9 F H 130 H 20 114/61 07/08/24 15:31 157/82 H 07/08/24 13:38 07/08/24 13:33 98.1 F 95 H 18 168/77 H 07/08/24 11:23 86 18 07/08/24 09:55 87 16 07/08/24 09:39 07/08/24 09:30 98.2 F 106 H 18 172/84 H BP Pulse Ox O2 Del Method 07/08/24 21:07 93 Room Air 07/08/24 19:38 90 Room Air 07/08/24 15:31 07/08/24 13:38 Room Air 07/08/24 13:33 97 Room Air 07/08/24 11:23 120/63 93 07/08/24 09:55 156/77 H 93 07/08/24 09:39 94 Room Air 07/08/24 09:30 95 Room Air Pain Intensity Flank: Pain Intensity: 4 Transfer of Care Handoff Completed per policy Notes Mental Status: alert / awake / arousable and participated in evaluation Patient Amnestic to Procedure: Yes Nausea / Vomiting: adequately controlled Pain: adequately controlled Airway Patency, RR, SpO2: stable & adequate BP & HR: stable & adequate Hydration State: stable & adequate Anesthetic Complications: no major complications apparent and Pt Satisfied with anesthetic care
[2024-07-09 07:39] LABS: Basophils # (auto) 0.02 K/uL (0.00-0.20); Basophils % (auto) 0.2 %; Hematocrit (blood only) 32.7 % (42.0-52.0); Immature Granulocytes # (auto) 0.06 K/uL (0.01-0.20); Immature Granulocytes % (auto) 0.5 %; Lymphocytes # (auto) 0.73 K/uL (1.20-3.40); Lymphocytes % (auto) 5.8 %; Mean Corpuscular Hgb Conc 33.6 g/dL (32.0-36.0); Mean Corpuscular Volume 92.1 fL (80.0-100.0); Monocytes # (auto) 1.04 K/uL (0.11-0.59); Monocytes % (auto) 8.2 %; Neutrophils # (auto) 10.82 K/uL (1.40-6.50); Neutrophils % (auto) 85.3 %; Platelet Count 153 K/uL (130-400); RDW Coefficient of Variation 13.2 % (11.5-14.5); RDW Standard Deviation 45.3 fL (36.4-46.3); Red Blood Count 3.55 M/uL (4.70-6.10); White Blood Count 12.67 K/ul (4.8-10.8)
[2024-07-09 07:50] LABS: Calcium 8.6 mg/dl (8.6-10.3); Creatinine Clr Calc Pharmacy 76.5 ml/min; Potassium 3.8 mmol/L (3.5-5.1)
[2024-07-09] MEDS: dilTIAZem HCL 180 MG CAPCR PO SCH (08:16)
[2024-07-09] MEDS: ACETAMINOPHEN 325 MG TAB PO PRN (08:24)
--- NOTE | 2024-07-09 08:44 | Urology Progress Note ---
Date of Service July 09, 2024 Assessment & Plan (1) Urolithiasis: (2) Renal colic: (3) Acute UTI: Plan: 59-year-old male admitted for renal colic secondary to right ureteral calculus. Patient became febrile and tachycardic yesterday evening and underwent c ystoscopy and right ureteral stent placement with Dr. Lam. - Pt subjectively doing well this morning - Afebrile, lab work reviewed - creatinine 1.57, WBC 12.67 - Urine culture pending - Continue with broad spectrum antibiotics and narrow per sensitivity data when available - Tolerating right ureteral stent with minimal bother - Okay to d/c from perspective when medically stable - Recommend d/c with course of PO antibiotics, Tamsulosin, prn Pyridium and prn pain medication for stent management - Expected clinical course reviewed, all questions answered - Patient is scheduled for ureteroscopy and stone treatment on 07/17keep as scheduled - will sign off, please contact our service with any additional questions or concerns Admission and Anticipated Discharge Date Admission Date: July 08, 2024 Subjective Patient examined at bedside this morning. Subjectively feeling well this morning. Minimal left flank discomfort. No dysuria. Tolerating stent better than previously. No fever or chills overnight. No nausea or vomiting. Review of Systems Constitutional: as per Subjective / HPI Genitourinary: + as per Subjective / HPI Physical Exam Constitutional: well developed and well nourished; no acute distress Respiratory: normal respiratory effort; no respiratory distress and no labored breathing Gastrointestinal (Abdomen): Inspection/Auscultation: abdomen normal to inspection Musculoskeletal: Head/Neck/Chest: normocephalic Neurologic: moves all extremities and awake Psychiatric: Orientation: alert and oriented x 3 Results & Data Vital Signs (Past 12 Hours) Vital Signs Temp Pulse Pulse Pulse Resp BP Pulse Ox 07/09/24 07:35 36.7 C 94 H 16 110/56 L 94 07/09/24 02:48 37.4 C 90 22 160/51 H 95 07/08/24 23:50 37.4 C 98 H 114/60 94 07/08/24 23:19 37 C 96 H 20 154/71 H 96 07/08/24 22:52 37.4 C 105 H 122/58 L 94 07/08/24 22:40 37.3 C 102 H 21 115/63 93 07/08/24 22:30 97 H 22 117/54 L 93 07/08/24 22:20 100 H 21 129/64 98 07/08/24 22:13 37.2 C 105 H 24 130/63 98 07/08/24 21:07 37.4 C 111 H 22 122/67 93 O2 Del Method O2 Flow Rate 07/09/24 07:35 Room Air 07/09/24 02:48 CPAP 07/08/24 23:50 Room Air, CPAP 07/08/24 23:19 Nasal Cannula 2 07/08/24 22:52 Nasal Cannula 2 07/08/24 22:40 Nasal Cannula 3 07/08/24 22:30 Oxymask 4 07/08/24 22:20 Oxymask 6 07/08/24 22:13 Oxymask 8 07/08/24 21:07 Room Air PG Care Time/CCT Total # of Minutes Spent Total Time Spent with Patient: Total time spent is greater than 50% in coordination of care (as documented) at patient's floor/unit and/or counseling patient: Coding Level of Care Code 21386 SUB INP/OBS CARE 06/30MIN Diagnoses Urolithiasis N20.1 Urinary calculus location: ureter Renal colic N23 Acute UTI N39.0 (1) Urolithiasis Urinary calculus location: ureter Qualified Code(s): N20.1 - Calculus of ureter
--- NOTE | 2024-07-09 08:58 | Fluoroscopy Report ---
FL [facility]UB CLINICAL HISTORY: CYSTO, RT STENT PLACEMENT COMPARISON STUDY: None FLUOROSCOPY TIME: 6 seconds FLUOROSCOPY IMAGES: 2 EXPOSURE DOSE: 4 mGy FINDINGS: Fluoroscopy was provided for ureteral stent placement. IMPRESSION: Intraoperative fluoroscopy. ACT 112: Negative or not required by law. Electronically signed by: Ash Higuera M.D. 07/09/2024 8:57 AM
--- NOTE | 2024-07-09 10:57 | Hospitalist Progress Note ---
Date of Service July 09, 2024 Assessment & Plan (1) Urolithiasis: (2) Sepsis: Plan #Urolithiasis / UTI / GÉNESIS CT A/P on admission revealed mild right hydroureteronephrosis secondary to 4 x 6 mm ureteral stone at level of L4-L5, with leukocytosis of 19.5 on admission and creatinine of 1.92 Patient became febrile to 102.9F and tachycardic in 120s negative admission and was emergently taken to the OR with Dr. Lam from urology for cystoscopy with right ureteral stent placement, tolerated procedure well with no complications Suspected UTI and possibly infected stone given the very significant leukocytosis as well as the urinalysis parameters. Review of urine cultures from last month reveal methicillin resistant Staph epidermidis Continue ceftriaxone 2 g IV daily and daptomycin 425 mg IV daily - discussed with pharmacy on admission; Continue Flomax GÉNESIS improving/?resolved, unclear patient's baseline Cr -- continue to encourage oral fluid intake Patient is scheduled for ureteroscopy and stent treatment on 07/17/2024 outpatient with urologykeep scheduled Downgrade to oral antibiotics when urine culture sensitivities result #Paroxysmal atrial fibrillation / Hypertension Continue Eliquis 5 mg twice daily, losartan 100 mg daily, diltiazem 180 mg daily #REYES Continue CPAP HS #Diabetes mellitus type 2 Takes Ozempic and metformin at home Insulin sliding scale/bolus basal insulin regimen while inpatient A1c pending, unfortunately machine down in hospital currently #GERD Continue Pepcid 20 mg daily #Dyslipidemia Takes atorvastatin 10 mg HS at home; currently on hold while on daptomycin Dispo: Continued inpatient stay overnight while awaiting finalized urine culture and monitoring temperature/heart rate Updated at bedside Admission and Anticipated Discharge Date Admission Date: July 08, 2024 Supervising Physician Co-Signing Physician Notes Attending Attestation - Chart reviewed, care plan d/w BRADLY Guevara. I agree w/ the beltrán components of her documentation with the following addition -- * sepsis 2nd to complicated UTI & obstructing kidney stone Appreciate urology assistance. Teja Antonio MD Subjective Patient seen and evaluated at bedside with his present. He was taken for emergent cystoscopy with right ureteral stent placement with Dr. Lam last night due to Mr Olmstead becoming febrile at 102.9 F and tachycardic 120-130s. He reports feeling much better since his procedure last night. He denies any further fever, chills, or racing heart beat. He denies pain, discomfort, or irritation from the stent placement. He had some hematuria initially, but this has already resolved with yellow urine now. He has passed gas and is well- tolerating his diet. Discussed that he will remain on both broad spectrum IV antibiotics until his urine culture has sensitivities listed. No additional complaints or concerns at this time. Physical Exam Physical Exam: General: No acute distress, nondiaphoretic, well-developed, class 3 obesity. Cardiac: Regular rate and rhythm without murmurs gallops or rubs. Pulm: Clear to auscultation bilaterally without wheezes, rales or rhonchi. No respiratory distress. 94% on room air. Abdominal: Soft, nontender, distended secondary to body habitus. Bowel sounds present. Neuro: A&O x3. No focal neurological deficits. Results & Data Results & Data Vital Signs (Past 12 Hours) Vital Signs Temp Pulse Pulse Pulse Resp BP Pulse Ox 07/09/24 07:35 98.1 F 94 H 16 110/56 L 94 07/09/24 02:48 99.3 F 90 22 160/51 H 95 07/08/24 23:50 99.3 F 98 H 114/60 94 07/08/24 23:19 98.6 F 96 H 20 154/71 H 96 07/08/24 22:52 99.3 F 105 H 122/58 L 94 O2 Del Method O2 Flow Rate 07/09/24 07:35 Room Air 07/09/24 02:48 CPAP 07/08/24 23:50 Room Air, CPAP 07/08/24 23:19 Nasal Cannula 2 07/08/24 22:52 Nasal Cannula 2 Laboratory Results Reviewed CBC with differential Reviewed BMP Reviewed urine culture PG Care Time/CCT Total # of Minutes Spent Total Time Spent with Patient: Total time spent is greater than 50% in coordination of care (as documented) at patient's floor/unit and/or counseling patient: Coding Level of Care Code 83604 SUB INP/OBS CARE MIN Diagnoses Urolithiasis N20.1 Urinary calculus location: ureter Sepsis A41.9 (1) Urolithiasis Urinary calculus location: ureter Qualified Code(s): N20.1 - Calculus of ureter
[2024-07-09] MEDS: cefTRIAXone SODIUM 2,000 MG/50 ML BAG IV SCH (12:16)
[2024-07-09] MEDS: DAPTOmycin 425 MG in SYRINGE 0 ML IV SCH (12:17)
--- NOTE | 2024-07-10 08:59 | Hospitalist Progress Note ---
Date of Service July 10, 2024 Assessment & Plan (1) Urolithiasis: (2) Sepsis: Plan #Urolithiasis / UTI / GÉNESIS sepsis 2nd to complicated UTI & obstructing kidney stone (leukocytosis/tachycardia/fever to 39.4C on admission) CT A/P on admission revealed mild right hydroureteronephrosis secondary to 4 x 6 mm ureteral stone at level of L4-L5, with leukocytosis of 19.5 on admission and creatinine of 1.92 Patient became febrile to 102.9F and tachycardic in 120s negative admission and was emergently taken to the OR with Dr. Lam from urology for cystoscopy with right ureteral stent placement, tolerated procedure well with no complications Suspected UTI and possibly infected stone given the very significant leukocytosis as well as the urinalysis parameters. Review of urine cultures from last month reveal methicillin resistant Staph epidermidis Continue ceftriaxone 2 g IV daily and daptomycin 425 mg IV daily - discussed with pharmacy on admission; Continue Flomax GÉNESIS improving/?resolved, unclear patient's baseline Cr -- continue to encourage oral fluid intake Patient is scheduled for ureteroscopy and stent treatment on 07/17/2024 outpatient with urologykeep scheduled Downgrade to oral antibiotics when urine culture sensitivities result 07/10 s/p cystoscopy, right ureteral stent placement with Dr Lam 07/08 Dapto/Ceftriaxone continued -- Labs pending from this morning, Cr prior improved 1.9--> 1.57 but still elevated ABOVE baseline and will place losartan 100mg PO on hold for now given elevated Cr but if normalized can resume, BP 145/64 and stable this morning. Home spironolactone 25mg BID already on hold ?if ever treated for prior urine cx w/ methicillin resistant staph epidermidis Does not appear to have been tx in the past, would treat as current GIven hydro, doubt effective nitro, message to Urology about possible Linezolid at dc Plans for lithotripsy of stone next week/repeat stent placement per patient. He reports this is already arranged. Had been on flomax in past weeks for stones on the left, rec to continue. RN to give strainer/cup to take if passes at home Urine clear in urinal, Cr down to 1.2. Discussed can resume his losartan in AM/spironolactone this evening. Hopeful dc 07/10 after lunch/discussion w/ Urology regarding abx #Paroxysmal atrial fibrillation / Hypertension Continue Eliquis 5 mg twice daily, losartan 100 mg daily, diltiazem 180 mg daily #REYES Continue CPAP HS #Diabetes mellitus type 2 Takes Ozempic and metformin at home Insulin sliding scale/bolus basal insulin regimen while inpatient A1c pending, unfortunately machine down in hospital currently #GERD Continue Pepcid 20 mg daily #Dyslipidemia Takes atorvastatin 10 mg HS at home; currently on hold while on daptomycin Dispo: Continued inpatient stay overnight while awaiting finalized urine culture and monitoring temperature/heart rate Updated at bedside Admission and Anticipated Discharge Date Admission Date: July 08, 2024 Subjective Eval this morning, feeling well. Urine clear yellow in urinal.. Underwent stent placement last evening. Has been on flomax since prior weeks w/ stones on his left side, rec to continue. Discussed prior urine cx/waiting to hear back from Urology on abx plan [place] but he is hopeful to leave today. Not yet seen by urology today. Pharmacy [facility], denies any issues w/ allergies to abx. Questions/concerns addressed at this time. Results & Data Results & Data Vital Signs (Past 12 Hours) Vital Signs Temp Pulse Resp BP Pulse Ox O2 Del Method 07/10/24 07:49 36.8 C 86 18 145/64 H 92 Room Air PG Care Time/CCT Total # of Minutes Spent Total Time Spent with Patient: Total time spent is greater than 50% in coordination of care (as documented) at patient's floor/unit and/or counseling patient: Coding Diagnoses Urolithiasis N20.1 Urinary calculus location: ureter Sepsis A41.9 (1) Urolithiasis Urinary calculus location: ureter Qualified Code(s): N20.1 - Calculus of ureter
[2024-07-10 09:47] LABS: Hematocrit (blood only) 33.8 % (42.0-52.0); Hemoglobin 11.3 g/dl (14.0-18.0); Mean Corpuscular Hemoglobin 30.6 pg (25.0-34.0); Mean Corpuscular Hgb Conc 33.4 g/dL (32.0-36.0); Mean Corpuscular Volume 91.6 fL (80.0-100.0); Mean Platelet Volume 10.8 fL (9.4-12.4); Platelet Count 159 K/uL (130-400); RDW Coefficient of Variation 13.2 % (11.5-14.5); RDW Standard Deviation 44.4 fL (36.4-46.3); Red Blood Count 3.69 M/uL (4.70-6.10); White Blood Count 6.74 K/ul (4.8-10.8)
[2024-07-10 09:57] LABS: BUN Creatinine Ratio 14.9 (10-20); Calcium 8.6 mg/dl (8.6-10.3); Creatinine Clr Calc Pharmacy 99.3 ml/min; Potassium 3.7 mmol/L (3.5-5.1)
[2024-07-10] MEDS: MAGNESIUM SULFATE / D5W 1 GM/100 ML BAG IV ONE (10:59)
--- NOTE | 2024-07-10 11:44 | Discharge Summary ---
Discharge Summary Date of Service July 10, 2024 Principal Dx & Hospital Course #1 = Principal Diagnosis (1) Sepsis: (2) Urolithiasis: Plan #Urolithiasis / UTI / GÉNESIS/Sepsis --sepsis 2nd to complicated UTI & obstructing kidney stone with leukocytosis 19.5k/tachycardia to 120s/fever 39.4C on admission. Also notable with GÉNESIS w/ Cr to 1.92 on admission w/ baseline suspected around [address] A/P on admission revealed mild right hydroureteronephrosis secondary to 4 x 6 mm ureteral stone Urology consulted, Dr Lam Ceftriaxone 2gm IV with Daptomycin IV daily continued. IVF provided while NPO s/p cystoscopy, right ureteral stent placement with Dr Lam 2/2 Continued Flomax 0.4mg daily - new rx/refill [place] as was taking w/ recent stents. Also on 10mcg PO Vit D, rec to repeat level w/ PCP/increase if needed. Avoid soda/teas, encouraged to stay well hydrated Discussed with supervising provider as well as urology given prior urine cx w/ s trep epidermidis which did not appear treated however recs against linezolid and rec for Cefdinir at [facility] and was sent on 300mg PO BID to complete course Notable, Cr down to 1.2 prior to dc and home spironolactone 25mg PO BID and losartan 100mg PO daily were on hold, BP 145/65 and urine clear in urinal/UOP great and rec to resume his spironolactone this evening and can resume losartan in AM 2/5 If any fevers/chills, or worsening, would need to consider coverage for prior urine cx, also would rec blood cx obtained prior to intervention given sepsis on admission (no lactic/procal obtained on admission), and WBC normalized to 6.74k and defervesced (last temp 37.7C evening 07/09 but no further fever/chills reported) Patient is scheduled for ureteroscopy and stent treatment on 07/17/2024 outpatie nt with urologykeep scheduled #Paroxysmal atrial fibrillation / Hypertension Continued Eliquis 5 mg twice daily, diltiazem 180 mg daily losartan 100 mg daily, spironolactone 25mg BID placed on hold 2nd to GÉNESIS/obstructing stone and BPs acceptable (last dose 07/09) Given improvement/resolution in GÉNESIS and urine clear in urinal with good UOP, recs to resume spironolactone this evening 2/4 and can resume losartan AM 2/5 #REYES CPAP HS #Diabetes mellitus type 2 Ozempic and metformin at home at baseline, A1c controlled 6.2 Utilized SSI while inpatient and can resume home meds at [place]. consider check b12 w/ PCP in f/u vs place on supplementation given metformin use. MCV wnl 91.6 #GERD Chronic/stable, remained on Pepcid 20 mg daily #Dyslipidemia Atorvastatin 10 mg HS [employer] which was on hold while on Dapto. Can resume at [facility] Notes For Next Care Provider Did have evidence for sepsis on admission w/ tachycardia/fever/leukocytosis but no blood cx/procal/lactic obtained. did discuss w/ urology prior urine cx and did not feel was an issue and recs for cefdinir at [facility] to complete abx course. If any worsening in condition, should be considered ensure f/u with urology for stone treatment rec repeat Vit D in f/u, increase PO supplementation if needed consider repeat BMP in f/u to ensure stable K/renal function however notable no elevated potassium on both spironolactone/losartan while inpatient Medication Changes From Visit Cefdinir 300mg PO BID x 7 days Spironolactone to resume PM 2/4 Losartan resume AM 2/5 Admission HPI Per Admitting Provider This is a pleasant 59-year-old male with a history of nephrolithiasis urolithiasis excetra, he started develop right-sided flank pain yesterday with nausea and vomiting. It waxed and waned through the day. This morning it was severe. Eventually presented to the ER for further evaluation and treatment. In emergency department CAT scan demonstrated some right-sided hydronephrosis with a 4 x 6 urethral stone at the level of L4-L5. Did also show inflammation of the renal pelvis. Along with hepatic steatosis and diverticulosis from a chronic standpoint with no evidence of acute diverticulitis. Laboratory studies showed a white count of approximately 20,000. With acute kidney injury with a creatinine 1.9 with a baseline of approximately 1. Urinalysis was positive for white cells and leukocyte esterase. Course Emergency Department received 2 g of IV Rocephin. Consultation obtained with urology on-call Dr. Lam. We are called with the patient further evaluation and treatment. I reviewed the patient's urine culture data from June 2023 grew multidrug- resistant Staph epidermidis methicillin-resistant. Conversation with clinical pharmacy given the patient's body habitus, we are going to use daptomycin in combination with Rocephin until culture data is resulted from today's urinalysis. Will hydrate the patient aggressively. Strain all urine. Consult urology. Tentative plan is for no surgery today n.p.o. after midnight for possible cystoscopy excetra tomorrow pending clinical course Admission Exam Per Admitting Provider In General: In general very pleasant 59-year-old male he is [place] by his , carlos. He is comfortable at this point he did receive some Toradol in the ER. He has no other complaints. He works locally at a grocery store. HEENT: Normocephalic atraumatic pupils are equal round and reactive to light bilaterally. No scleral icterus no conjunctival injection external auditory canals are patent septum is in the midline nose is without discharge oral mucosa is pink and moist without lesion. NECK: Supple no rigidity no lymphadenopathy no thyromegaly no carotid bruits no JVD no masses. HEART: Regular rate and rhythm I do not appreciate any ectopy or rub. No murmur. LUNGS: Clear to auscultation bilaterally and anteriorly with no evidence of adventitious sounds/wheezes rales or rhonchi. ABDOMEN: Soft nontender, no rebound, no peritoneal signs, positive bowel sounds, no appreciable organomegaly. EXTREMITIES: Intact, no peripheral cyanosis, clubbing or edema. Strength is 5 out of 5 in extremities x4. NEUROLOGICAL: Cranial nerves II through XII are grossly intact with no focal deficit elicited upon examination. Discharge Exam General: 59 obese male sitting up in bed, NAD, wanting to go home HEENT: head atraumatic, normocephalic, mmm, +thick neck, trachea midline Resp: even/unlabored, slightly diminished to the bases but no wheezing/rales, on room air, no tachypnea/cough CV: RRR, no significant m/r/g, no pitting edema/calf tenderness GI: +BS, obese, soft/slight distension but no overt tenderness/guarding : voiding clear yellow urine in urinal MSK/Neuro: nonfocal, answering questions appropriately, not confused Psych: AOx3, cooperative with exam Discharge Plan Discharge Items Patient Disposition: Home - Self-Care Reason For Visit: KIDNEY STONE Discharge Diagnosis: Kidney Stone,UTI acute kidney injury, sepsis, Goals: You have been hospitalized for an urgent problem which required surgery. During your stay at [facility], we have made an effort to correct the problem that brought you to the hospital while keeping you as comfortable as possible. Surgery and medications were used to bring your condition under control and your discharge instructions will include directions for any medications you should take after leaving the hospital. Please make sure to follow the advice of your surgeon regarding follow up with the surgeon and with your primary care provider. Activity: Resume your previous activity Non-emergency contact: Primary Care Provider and Urologist Call non-emergency contact if: you have any medication questions, your symptoms worsen, your pain is not controlled, your pain is worsening and your pain is concerning for you Follow-up/Referrals: Rubens Lam MD [Physician] - (Patient is scheduled 07/17 for outpatient procedure. Please keep this appointment as scheduled) Gold Zepeda CRNP [Primary Care Provider] - 07/16/24 11:00 am Diet: Heart Healthy Addtl Attending Provider Instructions: You have been hospitalized and found to have obstructing kidney stone/infection and underwent emergency cystoscopy with urology and stent placement. Your white count has normalized and fevers have improved/no further fevers today. Your kidney function has normalized with treatment and per urology, you are to be discharged on CEFDINIR 300mg twice daily for another 5 days. Please monitor for any worsening fevers/pain or symptoms concerning for you and return to ER if occurs. Please follow up with urology for stone treatment/removal/replacement of the stent as discussed. Please continue flomax daily, strain urine. You can resume your spironolactone this evening and losartan in the morning. Please continue to stay well hydrated and alert primary care if urine color starts to be darker in color or decreased amount. Please follow up with primary care in the next 7-10 days to monitor your progress after discharge. You should also discuss possibly checking a vitamin D level in follow up given repeat stone formation as if this is low this could possible increase risk for more stones if not treated. It has been a pleasure being a part of the medical team providing for you while you have been in the hospital. Take care! Pending Studies at Discharge: Yes Studies:: a1c- 6.2 Stand-Alone Forms: My [facility] langtaojin, Smoking Cessation Medications and DC Order Prescriptions: New cefdinir 300 mg capsule 300 mg PO BID Qty: 14 0RF Continued spironolactone 25 mg tablet 25 mg PO BID losartan 100 mg tablet 100 mg PO QAM diltiazem HCl 180 mg capsule,extended release 24 hr 180 mg PO QAM Eliquis 5 mg tablet 5 mg PO BID atorvastatin [Lipitor] 10 mg tablet 10 mg PO HS metformin 500 mg tablet 500 mg PO QAM famotidine 20 mg tablet 20 mg PO QAM cholecalciferol (vitamin D3) 10 mcg (400 unit) capsule 10 mcg PO DAILY multivitamin Tablet 1 tab PO DAILY oxycodone-acetaminophen 5-325 mg tablet 1 tab PO Q8H PRN (Reason: Pain) Ozempic 0.25 mg or 0.5 mg (2 mg/3 mL) pen injector 0.25 mg SUBCUT WK Rx Instructions: TUESDAY tamsulosin 0.4 mg capsule 0.4 mg PO QAM PRN (Reason: Bladder Spasms) Qty: 30 0RF Discharge Orders: Discharge Order (Routine); Ordered 07/10/24 Ordered By: Daysi Pollock Admission Data Admit Date/Time: 07/08/24 11:27 Attending Provider: Ernesto Harris Admit Provider: Dale Lee Primary Care Provider: Gold Zepeda Other Providers: Dale Lee; Rubens Lam Other Interventions: Discharge Summary Assessment (RN) Last Done: 07/10/24 13:55 Hospital Stay Data Consultations 07/08/24 11:07 ED Decision to Admit Stat 07/08/24 11:09 Consult Urology Routine Procedures Performed Operation Date: 07/08/24 21:30 Actual Procedures p Cytoscopy Right Ureteral Stent Insertion(Right) - Rubens Lam MD Diagnostic Imagining Performed Abdomen Fluoroscopy 07/08/24 00:00 FL [facility]UB CLINICAL HISTORY: CYSTO, RT STENT PLACEMENT COMPARISON STUDY: None FLUOROSCOPY TIME: 6 seconds FLUOROSCOPY IMAGES: 2 EXPOSURE DOSE: 4 mGy FINDINGS: Fluoroscopy was provided for ureteral stent placement. IMPRESSION: Intraoperative fluoroscopy. ACT 112: Negative or not required by law. Electronically signed by: Ash Higuera M.D. 07/09/2024 8:57 AM Abdomen/Pelvis CT 07/08/24 09:50 EXAM: CT Abdomen and Pelvis Without Intravenous Contrast INDICATION: Right flank pain. TECHNIQUE: Axial computed tomography images of the abdomen and pelvis without intravenous contrast. Sagittal and coronal reformatted images were created and reviewed. This CT exam was performed using one or more of the following dose reduction techniques: automated exposure control, adjustment of the mA and/or kV according to patient size, and/or use of iterative reconstruction technique. COMPARISON: 05/08/2024 FINDINGS: Limitations: None. Lung bases: No abnormality noted. Pleural space: No visualized pleural effusion or pneumothorax. Heart: No abnormality noted. Mediastinum: No abnormality noted. ABDOMEN: Liver: Normal size and contour. Hypodense typical of steatosis. No mass or ductal dilation. Gallbladder and bile ducts: No calcified stones or surrounding fluid. Pancreas: No pancreatic mass, calcification, inflammation or ductal dilation noted. Spleen: No significant abnormality noted. Adrenals: No significant abnormality noted. Kidneys and ureters: There is mild right hydroureteronephrosis to a 4 x 6 mm ureteral stone at the level of L4-L5. Slight increase size of the stone in the right renal pelvis. The renal pelvis is mildly inflamed. There are is a stable 7 mm stone in the right kidney now in the posterior lower pole. There is an 8 mm stone in the left kidney. This could reflect the previously noted UPJ stone which was pushed back into the kidney or it is a new stone with interval passage of the prior stone. There is mild right perinephric acute edema. There is decreased left perinephric edema. Stomach and bowel: Moderate amounts of stool throughout the colon with diffuse diverticulosis. No diverticulitis. No obstruction, thickening or pneumatosis. PELVIS: Appendix: Well seen and appears normal. Bladder: Urinary bladder is only minimally distended and grossly unremarkable. Mild thickening would be difficult to exclude. Reproductive: No abnormalities noted. ABDOMEN and PELVIS: Intraperitoneal space: No free air. No significant fluid collection. Bones/joints: Degenerative changes noted throughout the spine. No acute osseous abnormality seen. Soft tissues: There are small bilateral fat containing inguinal hernias. Vasculature: No abdominal aortic aneurysm. Lymph nodes: No pathologically enlarged lymph nodes. IMPRESSION: 1. Mild right hydroureteronephrosis to a 4 x 6 mm ureteral stone at the level of L4-L5. 2. The stone previously noted at the left UPJ is no longer in this location. There is a similar sized stone in the left kidney which could reflect interval migration or manipulation of the stone back into the kidney or could reflect a new stone. 3. Slight increase size of stone in the right renal pelvis which is inflamed. Nonobstructing right kidney stone stable. 4. Diffuse colonic diverticulosis. No diverticulitis noted. 5. Hepatic steatosis. ACT 112: Negative or not required by law. Electronically signed by Bhumika Ramirez 07-08-2024 10:40 AM Discharge Instructions Given to Patient (Per Discharging Provider) You have been hospitalized and found to have obstructing kidney stone/infection and underwent emergency cystoscopy with urology and stent placement. Your white count has normalized and fevers have improved/no further fevers today. Your kidney function has normalized with treatment and per urology, you are to be discharged on CEFDINIR 300mg twice daily for another 5 days. Please monitor for any worsening fevers/pain or symptoms concerning for you and return to ER if occurs. Please follow up with urology for stone treatment/removal/replacement of the stent as discussed. Please continue flomax daily, strain urine. You can resume your spironolactone this evening and losartan in the morning. Please continue to stay well hydrated and alert primary care if urine color starts to be darker in color or decreased amount. Please follow up with primary care in the next 7-10 days to monitor your progress after discharge. You should also discuss possibly checking a vitamin D level in follow up given repeat stone formation as if this is low this could possible increase risk for more stones if not treated. It has been a pleasure being a part of the medical team providing for you while you have been in the hospital. Take care! Supervising Physician Co-Signing Physician Notes The patient was not seen by me. The chart was reviewed. Case discussed with BRADLY Tipton. Agree with assessment and plan Total Time Total Time Spent Total Time Spent (In Minutes): 50 Coding Level of Care Code 32401 INP/OBS DISCH >30 MIN Diagnoses Sepsis A41.9 Urolithiasis N20.1 Urinary calculus location: ureter
[2024-07-10 12:59] LABS: Estimated Average Glucose 131 mg/dl; Hemoglobin A1C 6.2 % (4.5-5.6)
== END 2024-07-10 14:20 | disposition home or self-care (01) | DRG 854 ==
LOC: ED 09:23 → SUATTDRO 11:27 → EDINP 11:27 → 3W 12:25